=== PATIENT | male | born 1985 | race Caucasian/White ===

== ENCOUNTER 2018-11-01 17:00 | Inpatient (IN) | payer OTHER ==
[~2018-11-01] VITALS: Ht 180.3 cm; Wt 116.4 kg
--- NOTE | ~2018-11-01 | EKG ---
[place], [place] ELECTROCARDIOGRAM REPORT NAME: JUDITH AMATO UNIT #: [id number] ROOM: 512 DOCTOR: SHARLENE DRAFT REPORT BIRTHDATE: [birth year] [facility] Test Date: 2018-11-01 Test Time: 18:12:31 Pat Name: JUDITH AMATO Department: Room: 512 Gender: M Wet Mixer: : [id number] Requested By: ESTEBAN LENNON Order Number: [id number] Reading MD: Dianna Santos MD Measurements Intervals [place] Rate: 69 P: 34 SC: 160 QRS: 56 QRSD: 100 T: 52 QT: 430 QTc: 461 Interpretive Statements Sinus rhythm Electronically Signed On 11-05-2018 3:51:31 PDT by Dianna Santos MD CM:[id number]:ELECTROCARDIOGRAM REPORT [id number] ESTEBAN NORMAN DRAFT REPORT ESTEBAN LENNON DO
[2018-11-01 17:02] VITALS: BP 157/87
[2018-11-01 18:30] LABS: BASO % 0.1 % (0.0-1.0); EOS % 0.2 % (1.0-4.0); HEMATOCRIT 44.5 % (42.0-52.0); HEMOGLOBIN 14.4 g/dl (14.0-18.0); LYMPH # 0.7 10*3/uL (1.3-4.4); LYMPH % 9.1 % (27.0-41.0); MEAN CELL VOLUME 81.2 fl (80.0-94.0); MEAN CORPUSCULAR HGB 26.3 pg (27.0-31.0); MEAN CORPUSCULAR HGB CONC 32.4 g/dl (33.0-37.0); MEAN PLATELET VOLUME 10.2 fl (9.6-12.3); MONO # 0.1 10*3/uL (0.1-1.0); MONO % 1.7 % (3.0-9.0); NEUT # 7.1 10*3/uL (2.3-7.9); NEUT % 88.8 % (47.0-73.0); PLATELET COUNT AUTOMATED 289 10*3/uL (130-400); RED BLOOD COUNT 5.48 10*6/uL (4.50-5.90); RED CELL DISTRI WIDTH 13.1 % (0-14.5)
[2018-11-01 18:33] LABS: BILIRUBIN NEGATIVE (NEGATIVE); BLOOD NEGATIVE (NEGATIVE); CLARITY CLEAR (CLEAR); COLOR YELLOW (YELLOW); GLUCOSE NEGATIVE (NEGATIVE); KETONE NEGATIVE (NEGATIVE); LEUKO ESTERASE NEGATIVE (NEGATIVE); NITRITE NEGATIVE (NEGATIVE); SPECIFIC GRAVITY <= 1.005 (1.005-1.030); URINE AMPHETAMINES < 1000 (1000ng/ml); URINE BARBITURATES < 200 (200ng/ml); URINE BENZODIAZEPINES < 200 (200ng/ml); URINE CANNABINOIDS (THC) < 50 (50ng/ml); URINE COCAINE > 300 (300ng/ml); URINE METHADONE < 300 (300ng/ml); URINE OPIATES > 300 (300ng/ml); URINE PHENCYCLIDINE < 25 (25ng/ml)
--- NOTE | 2018-11-01 18:40 | NUR ---
DR LENNON TALKED WITH ANTOINE FROM [facility] AND WAS GIVEN THE OK TO ADMIT PATIENT.
[2018-11-01 18:41] VITALS: BP 148/78
[2018-11-01 18:43] LABS: ACT PARTIAL THROMBO TIME 24.7 SECONDS (20.8-31.5)
[2018-11-01 19:04] LABS: ALBUMIN 3.7 gm/dl (3.1-4.5); ALKALINE PHOSPHATASE 88 U/L (45-117); BUN 7 mg/dl (7-24); CHLORIDE 104 mmol/L (98-107); CREATININE 0.84 mg/dL (0.70-1.30); LIPASE 61 U/L (73-393); POTASSIUM 3.7 mmol/L (3.5-5.1); SGOT/AST 14 IU/L (3-35); SGPT/ALT 33 U/L (12-78); SODIUM 140 mmol/L (136-145); TOTAL PROTEIN 8.4 gm/dL (6.4-8.2); TROPONIN I < 0.015 ng/ml (<0.045)
[2018-11-01 19:27] LABS: BACTERIA TRACE; EPITHELIAL CELLS 0-2; RBC 0-2 rbc/hpf (0-2); WBC 0-2 wbc/hpf (0-5)
--- NOTE | 2018-11-01 19:40 | NUR ---
Time: 1939 A 32 year old MALE admitted to under services of MAURICE LEAL DO. Pt. arrived via wheel chair from ER. Chief complaint: CAME IN FOR THE [facility]. MISSY PEREZ
--- NOTE | 2018-11-01 20:10 | NUR ---
PATIENT MEDICATED WITH BENTYL, ZOFRAN, ROBAXIN AND REQUIP FOR S/S OF WITHDRAWAL. SEE EMAR. REINFORCED USE OF CALL LIGHT.
--- NOTE | 2018-11-01 22:30 | NUR ---
HEPLOCK REMOVED AT PATIENT REQUEST. PATIENT MEDICATED WITH TRAZODONE AND VISTARIL PER PRN ORDER FOR C/O INABILITY TO SLEEP AND ANXIETY. SEE EMAR. REINFORCED USE OF CALL LIGHT.
[2018-11-02] VITALS: BP 110/60
[2018-11-02 08:00] VITALS: BP 110/72
[2018-11-02 16:00] VITALS: BP 120/52
--- NOTE | 2018-11-02 19:45 | NUR ---
ASSUMED CARE OF PATIENT AT THIS TIME. PATIENT ASLEEP, EASILY AROUSABLE. PT DENIES ANY NEEDS AT THIS TIME. WILL MONITOR.
[2018-11-02 20:00] VITALS: BP 146/60
[2018-11-03] VITALS: BP 160/54
--- NOTE | 2018-11-03 02:15 | NUR ---
SL SUBUTEX ADMINISTERED PER ORDER. PATIENT DENIES ANY NEED FOR PRN MEDICATION.
[2018-11-03 08:00] VITALS: BP 120/52
--- NOTE | 2018-11-03 09:45 | NUR ---
PT SLEEPING. EASILY AWAKENED. PT REFUSED ALL 1000 SCHEDULED MEDICATIONS EXCEPT SUBUTEX.
[2018-11-03 16:00] VITALS: BP 120/68
[2018-11-03 20:00] VITALS: BP 132/80
--- NOTE | 2018-11-03 20:15 | NUR ---
PATIENT REFUSING VITALS AT THIS TIME
[2018-11-04 08:00] VITALS: BP 110/80
--- NOTE | 2018-11-04 08:12 | NUR ---
PATIENT MEETS [facility]. PATIENT IS GOING TO [facility] FOR HIS AFTERCARE PLAN. 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
--- NOTE | 2018-11-04 16:10 | NUR ---
Patient discharged in stable condition, referral letter provided to patient with specific instructions and appointment for ongoing treatment. Patient verbalizes understanding of discharge plan.
== END 2018-11-04 16:10 | disposition home or self-care (01) | DRG 897 ==
LOC: ED 17:00 → EDHOLD 18:25 → 5E 18:25
PROVIDERS: Emergency Medicine; ADMIT Internal Medicine
DX: F11.23 Opioid dependence with withdrawal (principal); E66.9 Obesity, unspecified; F14.10 Cocaine abuse, uncomplicated; F41.9 Anxiety disorder, unspecified; G25.81 Restless legs syndrome; F17.210 Nicotine dependence, cigarettes, uncomplicated; Z71.6 Tobacco abuse counseling; Z68.35 Body mass index [BMI] 35.0-35.9, adult

== ENCOUNTER 2020-02-13 11:47 | Inpatient (IN) | payer OTHER ==
[~2020-02-13] VITALS: Ht 1450 cm; Wt 132.0 kg
--- NOTE | 2020-02-13 12:56 | NUR ---
PATIENT MEETS [facility]. CINA=16. PATIENT WANTS TO FOLLOW UP WITH [facility] FOR HIS AFTERCARE PLAN. 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
[2020-02-13 13:00] VITALS: BP 140/71
--- NOTE | 2020-02-13 13:24 | NUR ---
Time: 1300 A 34 year old MALE admitted to under services of SANDRA TY DO, Pt. arrived via ambulatory from [place]. Chief complaint: OPIATE WITHDRAWAL. BRIANA MEREDITH
[2020-02-13 13:54] LABS: BASO % 0.5 % (0.0-1.0); EOS # 0.4 10*3/uL (0.0-0.4); EOS % 6.1 % (1.0-4.0); HEMATOCRIT 38.3 % (42.0-52.0); LYMPH # 1.6 10*3/uL (1.3-4.4); LYMPH % 28.6 % (27.0-41.0); MEAN CELL VOLUME 81.1 fl (80.0-94.0); MEAN CORPUSCULAR HGB CONC 30.8 g/dl (33.0-37.0); MEAN PLATELET VOLUME 9.2 fl (9.6-12.3); MONO # 0.3 10*3/uL (0.1-1.0); NEUT # 3.3 10*3/uL (2.3-7.9); NEUT % 58.6 % (47.0-73.0); PLATELET COUNT AUTOMATED 334 10*3/uL (130-400); RED BLOOD COUNT 4.72 10*6/uL (4.50-5.90); RED CELL DISTRI WIDTH 13.7 % (0-14.5); WHITE BLOOD COUNT 5.7 10*3/uL (4.8-10.8)
[2020-02-13 14:09] LABS: ALBUMIN 3.3 gm/dl (3.1-4.5); ALKALINE PHOSPHATASE 108 U/L (45-117); BUN 19 mg/dl (7-24); CHLORIDE 103 mmol/L (98-107); CREATININE 0.99 mg/dL (0.70-1.30); ETHYL ALCOHOL < 3.0 mg/dl (<3); POTASSIUM 4.4 mmol/L (3.5-5.1); SGOT/AST 16 IU/L (3-35); SGPT/ALT 23 U/L (12-78); SODIUM 137 mmol/L (136-145); TOTAL PROTEIN 7.6 gm/dL (6.4-8.2)
--- NOTE | 2020-02-13 14:23 | NUR ---
PT STATES HE DOES NOT WANT TO START THE SUBUTEX TAPER YET. WILL CONTINUE TO MONITOR.
--- NOTE | 2020-02-13 14:48 | NUR ---
DR. MUNROE NOTIFIED THAT PT'S RIGHT ELBOW WOUND NEEDED TO BE STAGED.
[2020-02-13 16:00] VITALS: BP 128/69
[2020-02-13 18:59] LABS: BILIRUBIN NEGATIVE (NEGATIVE); BLOOD NEGATIVE (NEGATIVE); CLARITY CLEAR (CLEAR); COLOR YELLOW (YELLOW); GLUCOSE NEGATIVE (NEGATIVE); KETONE NEGATIVE (NEGATIVE); LEUKO ESTERASE NEGATIVE (NEGATIVE); NITRITE NEGATIVE (NEGATIVE); SPECIFIC GRAVITY 1.015 (1.005-1.030); UROBILINOGEN 0.2 E.U./dl (0.2-1.0)
[2020-02-13 19:02] LABS: BACTERIA TRACE; MUCOUS 1+; RBC 0-2 rbc/hpf (0-2)
[2020-02-13 19:10] LABS: URINE AMPHETAMINES < 1000 (1000ng/ml); URINE BARBITURATES < 200 (200ng/ml); URINE BENZODIAZEPINES < 200 (200ng/ml); URINE CANNABINOIDS (THC) < 50 (50ng/ml); URINE COCAINE > 300 (300ng/ml); URINE METHADONE < 300 (300ng/ml); URINE OPIATES > 300 (300ng/ml); URINE PHENCYCLIDINE < 25 (25ng/ml)
[2020-02-13 20:00] VITALS: BP 138/78
--- NOTE | 2020-02-13 20:00 | NUR ---
RESTING IN BED; VOICES NO C/O AT THIS TIME. CALL LIGHT WITHIN REACH.
[2020-02-14] VITALS: BP 130/70
--- NOTE | 2020-02-14 04:00 | NUR ---
RESTING IN BED WITH EYES CLOSED. CALL LIGHT WITHIN REACH.
--- NOTE | 2020-02-14 08:31 | NUR ---
PT COMPLAINS OF RESTLESSNESS AND FEELING ANXIOUS AND ALL OVER BODY ACHES. PRN REQUIP, TYLENOL, AND VISTARIL
--- NOTE | 2020-02-14 09:20 | NUR ---
PT COMPLAINS OF NAUSEA/VOMITTING AND STOAMCH CRAMPS. PRN ZOFRAN AND BENTYL ADMINISTERED. WILL CONTINUE TO MONITOR.
--- NOTE | 2020-02-14 09:31 | NUR ---
PT IS LESS RESTLESS AND ANXIOUS AT THIS TIME. PT STATES SOME RELIEF FROM ALL OVER PAINS. PRN TYLENOL, REQUIP AND VISTARIL CONSIDERED EFFECTIVE.
--- NOTE | 2020-02-14 10:20 | NUR ---
PT STATES HE IS LESS NAUSEOUS AND RELIEF FROM STOMACH CRAMPS. PRN ZOFRAN AND BENTYL CONSIDERED EFFECTIVE.
--- NOTE | 2020-02-14 14:35 | NUR ---
PT COMPLAINS OF BODY AND MUSCLE ACHES, ANXIETY AND STOMACH CRAMPS PRN BENTYL, VISTARIL, MOTRIN AND ROBAXIN ADMINISTERED AT THIS TIME.
--- NOTE | 2020-02-14 15:35 | NUR ---
PT ASLEEP. PREVIOUSLY ADMINISTERED PRN MEDICATIONS CONSIDERED EFFECTIVE. WILL CONTINUE TO MONITOR.
--- NOTE | 2020-02-14 19:44 | NUR ---
SPOKE WITH DR TELLO, INFORMED HER THAT PATIENT IS REFUSING 2000 VITAL SIGNS, AND HAS ALL DAY. STATES THAT HE CAN BE MEDICATED DESPITE HIS REFUSAL. PATIENT UNPLEASANT AT THIS TIME, STATES THAT HE "IS FEELING BETTER" WHEN ASKED IF HE IS HAVING ANY SYMPTOMS. PATIENT SAYS THAT AUTOMATIC CUFF "HURTS HIS ARM". OFFERED TO CHECK HIS BLOOD PRESSURE MANUALLY TO HELP PREVENT THAT AND HE YELLED "NO, I DO NOT WANT IT". WILL CONTINUE TO MONITOR.
--- NOTE | 2020-02-15 01:16 | NUR ---
24 HOUR CHART CHECK COMPLETE.
--- NOTE | 2020-02-15 05:30 | NUR ---
MORNING MEDICATIONS PASSED. PATIENT REFUSING THE NEED FOR ANY PRN'S AT THIS TIME. WILL CONTINUE TO MONITOR.
--- NOTE | 2020-02-15 09:09 | NUR ---
PATIENT REFUSED MORNING VITALS AND MORNING MEDICATIONS.
--- NOTE | 2020-02-15 10:14 | NUR ---
PATIENT WAS NOT EDUCATED ON STANDARD PRECAUTIONS BECAUSE HE IS UNCCOPERATIVE. WOUND WAS NOT SEEN BECAUSE HE IS UNCOOPERATIVE AT THIS TIME.
--- NOTE | 2020-02-15 15:18 | NUR ---
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
--- NOTE | 2020-02-15 16:12 | NUR ---
Discharge instructions reviewed with patient/family. Patient receptive and verbalizes understanding. Follow-up care arranged. Written instructions given to patient/family. PATIENT REFUSED TO HAVE DISCHARGE PICTURES TAKEN. ARRON DIAZ
== END 2020-02-15 16:12 | disposition home or self-care (01) | DRG 773 ==
LOC: 5E 11:47
PROVIDERS: Internal Medicine; Student in an Organized Health Care Education/Training Program; ADMIT Internal Medicine
DX: F11.23 Opioid dependence with withdrawal (principal); F14.10 Cocaine abuse, uncomplicated; F17.220 Nicotine dependence, chewing tobacco, uncomplicated; E66.9 Obesity, unspecified; D64.9 Anemia, unspecified; R73.9 Hyperglycemia, unspecified; E87.3 Alkalosis; E44.0 Moderate protein-calorie malnutrition; Z71.6 Tobacco abuse counseling; Z68.1 Body mass index [BMI] 19.9 or less, adult